=== PATIENT | female | born 1970 | race Caucasian/White ===

== ENCOUNTER → 2021-07-22 | Day surgery (SDC) | payer OTHER ==
[2021-07-21 11:04] VITALS: BMI 29.0
[~2021-07-22] MED LIST: DEXAMETHASONE SOD PHOSPHATE 4 MG/1 ML VIAL ONE; LIDOCAINE HCL/PF 2% SDV 5ML VIAL ONE; MIDAZOLAM HCL 2 MG/2 ML SINGLE DOSE VIAL ONE; PROPOFOL 20 ML ONE; ROCURONIUM BROMIDE 50 MG/5 ML SYRINGE ONE; ceFAZolin SODIUM 1 GM VIAL ONE
== END | disposition home or self-care (01) ==
LOC: JASU-SURG 04:20
PROVIDERS: ATTEND Surgery
DX: Z53.8 Procedure and treatment not carried out for other reasons (principal)

== ENCOUNTER 2021-08-05 04:35 | Day surgery (SDC) | payer OTHER ==
[2021-08-04 17:55] VITALS: BMI 26.6
[2021-08-05] MEDS ORDERED: ONDANSETRON 4 MG/2 ML VIAL IVPUSH PRN (12:20)
[2021-08-05] MEDS ORDERED: LACTATED RINGERS SOLUTION 1,000 ML IV SCH (12:30)
[2021-08-05] MEDS ORDERED: BUPIVACAINE HCL/PF 0.5% (5MG/ML) 10 ML VIAL ONE ×3 (12:34→13:16)
[2021-08-05] MEDS ORDERED: BUPIVACAINE HCL/PF 0.25% (2.5MG/ML) 10 ML VIAL ONE (12:41)
[2021-08-05] MEDS ORDERED: PROPOFOL 20 ML ONE ×2 (12:57→13:57)
[2021-08-05] MEDS ORDERED: ROCURONIUM BROMIDE 50 MG/5 ML SYRINGE ONE (12:58)
[2021-08-05] MEDS ORDERED: DEXAMETHASONE SOD PHOSPHATE 4 MG/1 ML VIAL ONE ×2 (13:00→13:25)
[2021-08-05] MEDS ORDERED: LIDOCAINE HCL/PF 2% SDV 5ML VIAL ONE (13:00)
[2021-08-05] MEDS ORDERED: MIDAZOLAM HCL 2 MG/2 ML SINGLE DOSE VIAL ONE (13:01)
[2021-08-05] MEDS ORDERED: ceFAZolin SODIUM 1 GM VIAL IVPB ONE (13:15)
[2021-08-05] MEDS ORDERED: NEOSTIGMINE METHYLSULFATE 0.5 MG/ML - 10 ML MDV ONE (13:53)
[2021-08-05] MEDS ORDERED: BUPIVACAINE HCL/PF 0.5% (5MG/ML) 10 ML VIAL IJ ONE (14:10)
[2021-08-05] MEDS ORDERED: ACETAMINOPHEN 500 MG TABLET (FP) PO PRN (14:18)
[2021-08-05] MEDS ORDERED: ACETAMINOPHEN INJECTION 100 ML IVPB ONE (14:26)
[2021-08-05] MEDS ORDERED: ACETAMINOPHEN 1000 MG/100 ML VIAL (NON FORMULARY) IVPB ONE (14:30)
[2021-08-05] MEDS: oxyCODONE HCL 5 MG TABLET PO PRN ×2 (18:07→23:51)
[2021-08-06] MEDS: oxyCODONE HCL 5 MG TABLET PO PRN (08:42)
[2021-08-06] MEDS ORDERED: metoPROLOL SUCCINATE 25 MG TAB.SR.24H (FP) PO SCH (10:00)
[2021-08-06 14:36] VITALS: BP 100/62; PULSE 86; TEMP 98.5
== END 2021-08-06 16:00 | disposition home or self-care (01) ==
LOC: JASU-SURG 04:35 → JASUSAT 04:35 → J6S 16:01 → JASUSAT 08-06 16:00
PROVIDERS: ATTEND Surgery
PROC: 0WQF0ZZ Repair Abdominal Wall, Open Approach (ICD-10-PCS; principal; 2021-08-05 12:30)
PROC: 0FT44ZZ Resection of Gallbladder, Percutaneous Endoscopic Approach (ICD-10-PCS; 2021-08-05 12:30)
DX: K80.50 Calculus of bile duct without cholangitis or cholecystitis without obstruction (principal); K80.20 Calculus of gallbladder without cholecystitis without obstruction; K42.9 Umbilical hernia without obstruction or gangrene
CPT/HCPCS: 88304-TC; 94760; J0131